=== PATIENT | female | born 1985 | race Caucasian/White ===

== ENCOUNTER 2016-11-08 12:53 | Emergency (ER) | payer BC, OTHER ==
[~2016-11-08] VITALS: Ht 160 cm; Wt 60.0 kg
[~2016-11-08 12:53] MED LIST: Benzocaine TOP; IBUP600 PO; PERI8.6T PO; PREN0.01 PO
[2016-11-08 12:55] VITALS: BP 127/66; PULSE 98; RESP 20; TEMP 98.2; O2SAT 99
--- NOTE | 2016-11-08 13:10 | PD ---
Physical Exam Date Seen by Provider: Nov 08, 2016 Time Seen by Provider: 13:08 Narrative 31 yr old female with Raynaud's here with c/o chest pain. Patient says it has been going on for some time and saw her PCP who told her to cut caffeine consumption. No improvement. She reports chest pain that is sharp, stabbing, shooting and aching substernally without radiation. It has happened in the past , but she was never dx with anything. She admits to sob and pain worsening with inspiration. She admits to nausea, but no vomiting or diaphoresis. SHe recently travelled [address] Patient seen in triage and awaiting bed placement. Data Data Last Documented VS Vital Signs Date Time Temp Pulse Resp B/P Pulse Ox O2 Delivery O2 Flow Rate FiO2 11/08/16 12:55 98.2 98 20 127/66 99 Room Air [facility] Medical Record Reviewed: Yes Supervised Visit with CHAVO: Whitney Segundo Nov 08, 2016 13:10
[2016-11-08 15:00] VITALS: O2SAT 100
[2016-11-08] MEDS ORDERED: SODIUM CHLORIDE 0.9% FLUSH 10 ML FLUSH IVF PRN (15:00)
[2016-11-08] MEDS ORDERED: IBUPROFEN 600 MG TAB PO ONE (15:00)
--- NOTE | 2016-11-08 15:26 | RADRPT ---
EXAM DATE/TIME: 11/08/2016 15:04 [place] COMPARISON: No previous studies available for comparison. INDICATIONS : Chest pain. Heart palpitations. MEDICAL HISTORY : None. SURGICAL HISTORY : Lumpectomy right side ENCOUNTER: Initial ACUITY: 1 month PAIN SCORE: 2/10 LOCATION: Left upper chest center FINDINGS: The lungs are clear without infiltrate, nodule, or mass. There is no appreciable pleural effusion fo r technique. Heart and mediastinum are unremarkable. CONCLUSION: No acute cardiopulmonary disease. Tennille Kramer MD on November 08, 2016 at 15:24 Board Certified Radiologist. This report was verified electronically.
[2016-11-08 15:35] LABS: AUTOMATED NEUTROPHIL # 4.6 TH/MM3 (1.8-7.7); BASOPHIL % 0.4 % (0.0-2.0); EOSINOPHIL % 0.3 % (0.0-4.0); HEMATOCRIT 42.3 % (35.0-46.0); HEMO FLAGS DIFF FINAL; LYMPH % 21.2 % (9.0-44.0); LYMPHOCYTE # 1.3 TH/MM3 (1.0-4.8); MEAN CELL VOLUME 88.7 FL (80.0-100.0); MEAN CORPUSCULAR HEMOGLOBIN 31.2 PG (27.0-34.0); MEAN CORPUSCULAR HGB CONC 35.2 % (32.0-36.0); MONO % 4.7 % (0.0-8.0); NEUT % 73.4 % (16.0-70.0); PLATELET COUNT 202 TH/MM3 (150-450); RED BLOOD COUNT 4.77 MIL/MM3 (4.00-5.30); RED CELL DISTRIBUTION WIDTH 12.3 % (11.6-17.2); WHITE BLOOD COUNT 6.2 TH/MM3 (4.0-11.0)
[2016-11-08 15:45] LABS: APTT (PATIENT) 29.3 SEC (24.3-30.1); PROTHROMBIN TIME - PATIENT 10.5 SEC (9.8-11.6)
[2016-11-08 15:46] LABS: ANION GAP 10 MEQ/L (5-15); BICARBONATE 25.5 MEQ/L (21.0-32.0); BLOOD UREA NITROGEN 11 MG/DL (7-18); CHLORIDE 106 MEQ/L (98-107); GLOMERULAR FILTRATION RATE 82 ML/MIN (>89); POTASSIUM 3.7 MEQ/L (3.5-5.1); SODIUM (NA) 141 MEQ/L (136-145)
--- NOTE | 2016-11-08 16:58 | PD ---
HPI Chief Complaint: Cardiac Complaint Time Seen by Provider: 14:24 Travel History International Travel<30 days: No Contact w/Intl Traveler<30days: No Traveled to known affect area: No History of Present Illness HPI Patient is a 31 year old female who comes in complaining of chest pain and palpitations. She says she has had these episodes several times over the past few months. It started again last night, so she came in to get it checked out. She says her symptoms have improved since last night. She has mentioned this to her PCP, but does not feel he is addressing her problem. She denies fever or chills. She denies cough or cold. She denies recent travel, control use, leg pain or swelling. She denies drug use or family history of cardiac issues. PFSH Past Medical History Hx Anticoagulant Therapy: No Cardiovascular Problems: No Chemotherapy: No Cerebrovascular Accident: No Diabetes: No Diminished Hearing: No Genitourinary: Yes (prolapsed) Medical other: Yes (raynads) Respiratory: No Tetanus Vaccination: < 5 Years ?: Not LMP: 10/27/16 : 0 Para: 0 Miscarriage: 0 : 0 Past Surgical History Hysterectomy: No Thoracic Surgery: Yes (2013 rt lumpectomy) Social History Alcohol Use: No Tobacco Use: No Substance Use: No Allergies-Medications (Allergen,Severity, Reaction): Coded Allergies: Codeine (Verified Allergy, Severe, 11/08/16) Reported Meds & Prescriptions Reported Meds & Active Scripts Active No Active Prescriptions or Reported Medications Review of Systems Except as stated in HPI: all other systems reviewed are Neg General / Constitutional: No: Fever, Chills Eyes: No: Blurred Vision HENT: No: Headaches, Lightheadedness Cardiovascular: Positive: Chest Pain or Discomfort, Palpitations Respiratory: No: Cough Gastrointestinal: No: Nausea, Vomiting Musculoskeletal: No: Myalgias, Pain Skin: No Rash, No Change in Pigmentation Neurologic: No: Weakness, Dizziness Physical Exam Narrative GENERAL: Awake and alert, in no acute distress. SKIN: Focused skin assessment warm/dry. HEAD: Atraumatic. Normocephalic. EYES: Pupils equal and round. No scleral icterus. ENT: No nasal bleeding or discharge. Mucous membranes pink and moist. NECK: Trachea midline. No JVD. CARDIOVASCULAR: Regular rate and rhythm. No murmur appreciated. RESPIRATORY: No accessory muscle use. Clear to auscultation. GASTROINTESTINAL: Abdomen soft, non-tender, nondistended. Hepatic and splenic margins not palpable. MUSCULOSKELETAL: No obvious deformities. No clubbing. No cyanosis. No edema. No calf tenderness. NEUROLOGICAL: Awake and alert. No obvious cranial nerve deficits. Motor grossly within normal limits. Normal speech. PSYCHIATRIC: Appropriate mood and affect; insight and judgment normal. Data Data Last Documented VS Vital Signs Date Time Temp Pulse Resp B/P Pulse Ox O2 Delivery O2 Flow Rate FiO2 11/08/16 15:00 100 Room Air 11/08/16 12:55 98.2 98 20 127/66 Orders Electrocardiogram (11/08/16 ) Basic Metabolic Panel (Bmp) (11/08/16 14:50) Complete Blood Count With Diff (11/08/16 14:50) D-Dimer (11/08/16 14:50) Prothrombin Time / Inr (Pt) (11/08/16 14:50) Act Partial Throm Time (Ptt) (11/08/16 14:50) Troponin I (11/08/16 14:50) Ecg Monitoring (11/08/16 14:50) Iv Access Insert/Monitor (11/08/16 14:50) Oximetry (11/08/16 14:50) Sodium Chloride 0.9% Flush (Ns Flush) (11/08/16 15:00) Chest, Pa & Lat (11/08/16 14:50) Ed Urine Pregnancytest Poc (11/08/16 14:50) Ibuprofen (Motrin) (11/08/16 15:00) Labs Laboratory Tests Test 11/08/16 15:10 White Blood Count 6.2 TH/MM3 Red Blood Count 4.77 MIL/MM3 Hemoglobin 14.9 GM/DL Hematocrit 42.3 % Mean Corpuscular Volume 88.7 FL Mean Corpuscular Hemoglobin 31.2 PG Mean Corpuscular Hemoglobin 35.2 % Concent Red Cell Distribution Width 12.3 % Platelet Count 202 TH/MM3 Mean Platelet Volume 10.0 FL Neutrophils (%) (Auto) 73.4 % Lymphocytes (%) (Auto) 21.2 % Monocytes (%) (Auto) 4.7 % Eosinophils (%) (Auto) 0.3 % Basophils (%) (Auto) 0.4 % Neutrophils # (Auto) 4.6 TH/MM3 Lymphocytes # (Auto) 1.3 TH/MM3 Monocytes # (Auto) 0.3 TH/MM3 Eosinophils # (Auto) 0.0 TH/MM3 Basophils # (Auto) 0.0 TH/MM3 CBC Comment DIFF FINAL Differential Comment Prothrombin Time 10.5 SEC Prothromb Time International 1.0 RATIO Ratio Activated Partial 29.3 SEC Thromboplast Time D-Dimer Quantitative (PE/DVT) LESS THAN 0.19 MG/L FEU Sodium Level 141 MEQ/L Potassium Level 3.7 MEQ/L Chloride Level 106 MEQ/L Carbon Dioxide Level 25.5 MEQ/L Anion Gap 10 MEQ/L Blood Urea Nitrogen 11 MG/DL Creatinine 0.81 MG/DL Estimat Glomerular Filtration 82 ML/MIN Rate Random Glucose 92 MG/DL Calcium Level 9.1 MG/DL Troponin I LESS THAN 0.02 NG/ML MDM Medical Decision Making Medical Screen Exam Complete: Yes Emergency Medical Condition: Yes Interpretation(s) ECG shows normal sinus rhythm at 80, no ST elevation or depression, normal intervals. Differential Diagnosis Anxiety versus electrolyte abnormality versus PE versus pneumonia versus costochondritis Narrative Course Patient is a 31-year-old female who comes in complaining of chest pain and palpitations. Exam shows no acute abnormalities. IV established, labs sent. Patient connected to bus monitor. Labs show no acute abnormalities. Troponin and d-dimer are negative. Chest x- ray shows no acute abnormalities. Patient is resting comfortably. Has had no further episodes of palpitations. Patient will be discharged home to follow-up with her primary care doctor. Advised follow-up with cardiology. Advised to return to the emergency department as needed for any worsening symptoms. Diagnosis Primary Impression: Chest pain Qualified Code: R07.9 - Chest pain, unspecified type Referrals: Sonny Rodas DO call for appointment Patient Instructions: Chest Pain (ED), General Instructions, Palpitations (ED) Additional Instructions: Follow up with your primary care doctor. Take Ibuprofen as needed for pain. Return to the ED as needed for any worsening symptoms. Scripts No Active Prescriptions or Reported Meds Disposition: 01 DISCHARGE HOME Condition: Stable Elaina Shook MD Nov 08, 2016 16:58
--- NOTE | 2016-11-09 12:43 | EKG ---
Date Performed: 11/08/2016 Time Performed: 13:21:45 PTAGE: 31 years EKG: Sinus rhythm WITH SINUS ARRHYTHMIA POSSIBLE RIGHT VENTRICULAR CONDUCTION DELAY BORDERLINE ECG NO PREVIOUS TRACING DOCTOR: Tarun Lindsey Interpretating Date/Time 11/09/2016 12:35:28
== END 2016-11-08 17:02 | disposition home or self-care (01) ==
LOC: NEPD 12:53
DX: R07.9 Chest pain, unspecified (principal); R00.2 Palpitations; R94.31 Abnormal electrocardiogram [ECG] [EKG]; Z87.448 Personal history of other diseases of urinary system
CPT/HCPCS: 71020; 80048; 84484; 84703; 85025; 85379; 85610; 85730; 93005; 99285